=== PATIENT | male | born 1955 | race Caucasian/White ===

== ENCOUNTER → 2019-08-12 | Outpatient (CLI) | payer OTHER ==
[~2019-08-12] VITALS: Ht 170.2 cm; Wt 97.8 kg
[~2019-08-12] MED LIST: CARDURA4 MG PO; HYDROCHLOROTH12.5 M1 PO; LOPRESSOR50 PO; MOBIC15 MG PO; NABUMETONE 500500 M1 PO; PRAVACHOL20 MG PO; SINGULAIR 10 MG10 M1 PO; ZOLPIDEM TARTRA10 MG PO
[2019-08-12 08:21] VITALS: BP 153/81
--- NOTE | 2019-08-12 08:34 | NUR ---
Pain Clinic Assessment: 1. History of Osteoarthritis: SPINE History of Rheumatoid Arthritis: NO 2. Height: 5 ft. 7 in. 170.2 cm. Weight: 215.6 lb. oz. 97.796 kg. Patient's BMI: 33.8 3. Vital Signs: BP: 153/81 Pulse: 57 Resp: 16 Temp: 02 Sat: 96 ECG Mon: 4. Pain Intensity: 6 5. Fall Risk: Dizziness: Y Needs help standing or walking: N Fallen in the last 3 months: N Fall risk comments: 6. Patient on Blood Thinner: None 7. History of Hypertension: Y 8. Opioid Therapy greater than 6 weeks: N Opiate Contract Signed: 9. Risk Assessment Tool Provided: 10. Functional Assessment Tool: 11. Recreational Drug Use: Never Drug Type: Tobacco Use: Never Smoker Tobacco Type: Amount or Packs/day: How Many Years: Alcohol Use: Yes Frequency: Daily Quant:
--- NOTE | 2019-08-26 08:01 | HPC ---
[facility] [place] [address] PAIN MANAGEMENT CONSULTATION Name: KEMARLONG Mei [id number] Admission: 08/12/19 Attend Phys: Andrea Cooney DO Discharge: Date of : 53 Report #: [id number] THIS REPORT FOR: //name// CC: Doug Mckeon DATE OF SERVICE: 08/12/2019 REFERRING PHYSICIAN: Doug Negro DO CHIEF COMPLAINT: Right groin pain, right medial thigh pain. HISTORY OF PRESENT ILLNESS: As you know, the patient is a 64-year-old male who reports longstanding right groin pain and medial thigh pain that has been present since 2011. The patient states he "has just been putting up with it." Apparently, his symptoms became intolerable and he sought evaluation through his primary care team. The patient trialed conservative treatment options, but did not notice improvement in symptoms. The symptoms that he complains of worsened even with medication management, and then he was subsequently sent for MRI of the lumbar spine. Changes were noted at multiple levels that showed severe central canal stenosis, mainly at the L3-L4 level concerning for the patient's distribution of symptoms. He was subsequently referred to our clinic. The patient reports today pain is steady. He describes the pain as burning, aching, and tender. He denies injury or trauma that may have led to symptoms. He has no issues when he has pain lying down. He places pain score at 6/10, daily average is 6/10, worst pain has been is 9/10. He states that walking upstairs or uphill or on uneven surfaces exacerbate symptoms, nothing tends to improve pain. He has been referred to our service to discuss treatment options for suspected lumbar radiculopathy. PAST MEDICAL HISTORY: 1. Diverticulitis. 2. Irritable bowel syndrome. 3. Sleep apnea. 4. Chronic low back pain. 5. Hypertension. 6. Anxiety disorder. PAST SURGICAL HISTORY: 1. Rhinoplasty. 2. Colon surgery. SOCIAL HISTORY: The patient denies tobacco, IV or illicit drug use. Admits to 1 alcohol beverage per day. He is retired, retired about 6 years ago, not [facility] [address] [place] [address] PAIN MANAGEMENT CONSULTATION Name: LONG REINOSO Room #: REG [facility].#: [id number] Admission: 08/12/19 Attend Phys: Andrea Cooney DO Discharge: Date of : 53 Report #: [id number] receiving workmen's compensation nor is he trying to obtain disability benefits. He is accompanied by his significant other present in room. REVIEW OF SYSTEMS: Positive for headaches, cataracts, hearing loss with tinnitus, frequent urination, nocturia, kidney stones, testicular pain, lightheadedness and dizziness, insomnia, enlarged glands. All other review of systems negative per 12-point review of systems other than those listed in history of present illness. Pain impact score 36/70 indicating moderate interference of daily activities secondary to pain. ALLERGIES: PENICILLINS. CURRENT MEDICATIONS: Meloxicam 15 mg once a day, metoprolol 50 mg once a day, pravastatin 20 mg per day. Cardura 4 mg once a day, montelukast sodium 10 mg per day, hydrochlorothiazide 12.5 mg once a day, zolpidem 10 mg p.o. daily. IMAGING: MRI lumbar spine obtained 07/21/2019 shows degenerative changes throughout the lumbar spine, mild central canal stenosis at L2-L3, dutm-se-elptbiso central canal stenosis at L3-L4, moderate to severe right greater than left central canal stenosis at L4-L5, no neural foraminal stenosis seen. PQRS: The patient has osteoarthritic changes of the lumbar spine. No rheumatoid arthritis. He is placing pain intensity 6/10, is not a fall risk, has not had a fall in last 3 months. He is not on blood thinners. He is treated for hypertension. He is not on chronic opioids, has a low opioid addiction potential. Pain impact score is 36/70, moderate interference of daily activities secondary to pain. PHYSICAL EXAMINATION: VITAL SIGNS: Blood pressure 153/81, pulse is 57, respiratory rate 16 and unlabored. The patient is 96% on room air. Height 5 feet 7 inches tall, weight 215.6 pounds, BMI calculated 33.8. GENERAL: Well-developed, well-nourished, well-hydrated, 64-year-old male. He appears his stated age. He is in no acute distress, awake, alert and oriented x 3. Current pain score rated at 6/10. HEENT: Normocephalic, atraumatic. Pupils equal, round, reactive to light. Extraocular muscles intact. Sclerae nonicteric without injection. NEUROLOGIC: Cranial nerves 2-12 grossly intact. Speech fluent. The patient deemed a fair historian. LUNGS: Clear, no wheeze, rhonchi or rales. CARDIOVASCULAR: Regular. No appreciable gallop, no rub. ABDOMEN: Soft, nontender, nondistended. EXTREMITIES: Show no clubbing, no cyanosis, no edema. [facility] [address] [place] [address] PAIN MANAGEMENT CONSULTATION Name: LONG REINOSO Room #: REG CLTerence Perez#: [id number] Admission: 08/12/19 Attend Phys: Andrea Cooney DO Discharge: Date of : 53 Report #: [id number] MUSCULOSKELETAL: Lower extremity strength is symmetrical, 5/5. Muscle bulk and tone equal and symmetrical in comparing left lower extremity to right. Seated straight leg raising negative. Supine straight leg raising negative. Roland's test is negative. Modified Gaenslen's positive for some axial low back pain. Ankle clonus negative. Babinski is negative. ASSESSMENT: 1. Right groin pain. 2. Right scrotal pain. 3. Right anteromedial thigh pain. PLAN: 1. Based on today's physical exam and history the patient has provided the description that the patient uses to pain as well as location of symptoms, likely source of the patient's pain is neuropathic in origin. I am unable to correlate the patient's findings at present with a lumbar radiculopathy. Distribution of symptoms does not correlate with the findings of his MRI. He has inguinal pain, which would equate to an L1 dermatomal distribution as well as some anteromedial thigh pain over what appears to be the distribution of the obturator nerve, which again does not correlate with the patient's symptoms. Interestingly, he has majority of pain across the scrotum. He does not have any testicular symptoms, which would be related to thoracic dermatomal distributions, but does have scrotal pain, which would equate more to a sacral distribution. The distribution of pain does not appear to fit with typical lumbar radiculopathy. I believe further investigation is necessary. We would recommend imaging of the pelvic area with MRI. This will help us determine if there is a source of symptoms unknown at present and given the lack of a dermatomal distribution would be concerning of changes within the inguinal area. 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 Further investigation, I believe, is warranted. 2. The patient will be sent for MRI of the pelvic area without contrast. The patient will undergo this imaging as quickly as possible. This will help us to determine a more definitive course of treatment. 3. We will start the patient on an anti-inflammatory that he can take consistently. This will help with his ongoing pain. We will start the patient on nabumetone 500 mg dose 1 tab p.o. t.i.d. I have given the patient #90 tablets. He is to take this with meals. He will watch for dyspepsia, worsening of blood pressure, lower extremity edema. If he notes any side effects, discontinue immediately. 4. We will see the patient back in followup visit once he has completed his pelvic examination from MRI standpoint. This will help us determine a course of treatment, which may include injections of the genitofemoral branch or possibly even address pelvic issues with surgical consultation. This will all be based on the MRI of the pelvis that we are awaiting. 5. We wish to thank the referring nurse practitioner [place] [address] PAIN MANAGEMENT CONSULTATION Name: LONG REINOSO Room #: REG VALERIE Perez#: [id number] Admission: 08/12/19 Attend Phys: Andrea Cooney DO Discharge: Date of : 53 Report #: [id number] opportunity to see the patient in consultation. We will keep you apprised of his response to treatment. Again, we wish to thank you for the opportunity to see this patient in consultation. <ELECTRONICALLY SIGNED> By: Andrea Cooney DO 08/26/19 0801 [id number] Andrea Cooney DO /nt
== END ==
LOC: PAIN 08:06
DX: R10.30 Lower abdominal pain, unspecified (principal); I10 Essential (primary) hypertension; F41.9 Anxiety disorder, unspecified; M79.651 Pain in right thigh; N50.82 Scrotal pain; Z88.0 Allergy status to penicillin; Z79.899 Other long term (current) drug therapy

== ENCOUNTER → 2019-08-26 | Outpatient (CLI) | payer OTHER | LOC: MRI 08:59 | DX: N40.0 Benign prostatic hyperplasia without lower urinary tract symptoms (principal); K57.30 Diverticulosis of large intestine without perforation or abscess without bleeding; R10.13 Epigastric pain ==

== ENCOUNTER → 2019-09-23 | Outpatient (CLI) | payer OTHER ==
[~2019-09-23] VITALS: Ht 170.2 cm; Wt 98.0 kg
[2019-09-23 09:32] VITALS: BP 138/83
--- NOTE | 2019-09-23 09:39 | NUR ---
Pain Clinic Assessment: 1. History of Osteoarthritis: SPINE History of Rheumatoid Arthritis: NO 2. Height: 5 ft. 7 in. 170.2 cm. Weight: 216.0 lb. oz. 97.977 kg. Patient's BMI: 33.8 3. Vital Signs: BP: 138/83 Pulse: 63 Resp: 16 Temp: 02 Sat: 97 ECG Mon: 4. Pain Intensity: 5 5. Fall Risk: Dizziness: N Needs help standing or walking: N Fallen in the last 3 months: N Fall risk comments: 6. Patient on Blood Thinner: None 7. History of Hypertension: Y 8. Opioid Therapy greater than 6 weeks: N Opiate Contract Signed: 9. Risk Assessment Tool Provided: L0W-0 10. Functional Assessment Tool: 11. Recreational Drug Use: Never Drug Type: Tobacco Use: Never Smoker Tobacco Type: Amount or Packs/day: How Many Years: Alcohol Use: Yes Frequency: Quant:
--- NOTE | 2019-09-30 16:27 | HPC ---
[facility] [place] [address] PAIN MANAGEMENT CONSULTATION Name: LONG REINOSO Room #: REG Terence Perez#: [id number] Admission: 09/23/19 Attend Phys: Andrea Cooney DO Discharge: Date of : 53 Report #: [id number] THIS REPORT FOR: //name// CC: Doug Mckeon DATE OF SERVICE: 09/23/2019 CHIEF COMPLAINT: Right groin pain, right medial thigh pain. HISTORY OF PRESENT ILLNESS: As you know, the patient is a 64-year-old male with longstanding history of right groin pain, right medial thigh pain that began in 2010. He states he has just been "putting up with it. I saw the patient in consultation on 08/12/2019 and he was sent for further evaluation of the groin. He returns today to review the MRI, which essentially shows no findings other than some sigmoid diverticulosis, mild enlargement of the prostate typical for his age and some gluteus medius and minimus tendinosis, but otherwise no findings in the right groin. He returns reporting pain score of 5/10. States the pain is intermittent, aching and burning in sensation, exacerbated with walking uphill, stairs and crossing his legs. Rest appears to improve pain. He returns to discuss his findings of his MRI and discuss treatment options. ALLERGIES: PENICILLIN. CURRENT MEDICATIONS: Nabumetone 500 mg 3 times a day, metoprolol 50 mg once a day, pravastatin 20 mg once a day, Cardura 4 mg once a day, montelukast sodium 10 mg once a day, hydrochlorothiazide 12.5 mg once a day, zolpidem 10 mg p.o. at bedtime. SOCIAL HISTORY: The patient reports he is a nonsmoker. Denies IV or illicit drug use. He admits to occasional alcohol beverage. He is retired, retired years ago, accompanied by his significant other. IMAGING: MRI of the pelvis to evaluate right inguinal pelvic pain shows mild symmetrical bilateral hip joint osteoarthritic changes, otherwise unremarkable. There is sigmoid diverticulosis noted, but no definitive findings in that area. There is mild enlargement of the prostate, which is typical for the patient's age. He also has some mild tendinosis of the gluteus tendons on the right. PQRS: The patient has known arthritic changes of the lumbar spine, no rheumatoid arthritis. He is placing pain intensity today around 5/10. He is not a fall risk, has not had a fall in the last 3 months. He is not on blood thinners. He is treated for hypertension. He is not on chronic opioids and has a low opioid addiction potential. Pain impact score today is rated at 41/70, moderate to severe interference of daily activities secondary to pain. [facility] [address] [place] [address] PAIN MANAGEMENT CONSULTATION Name: LONG REINOSO Room #: REG VALERIE Perez#: [id number] Admission: 09/23/19 Attend Phys: Andrea Cooney DO Discharge: Date of : 53 Report #: [id number] PHYSICAL EXAMINATION: VITAL SIGNS: Blood pressure 138/83, pulse is 63, respiratory rate 16 and unlabored. The patient is 97% on room air. Height 5 feet 7 inches tall, weight 216 pounds, BMI calculated 33.8. GENERAL: Well-developed, well-nourished, well-hydrated 64-year-old male, appearing stated age. He is placing current pain score around 5/10. HEENT: Normocephalic, atraumatic. Pupils equal, round, reactive to light. EXTREMITIES: Show no clubbing, no cyanosis, and no edema. GENITOURINARY: There is no hydrocele noted on physical exam. No hernia noted with evaluation. MUSCULOSKELETAL: The patient has tenderness to palpation over the medial aspect of the groin. There are no masses or fluctuant fluid collections in the area. Lower extremity strength is equal and symmetrical, though there is slight giveaway strength noted with hip flexion, knee extension on the right due to pain generation in the groin. Seated straight leg raising negative. Supine straight leg raising negative. Roland's test is positive for some axial low back pain issues. Frogleg of the right causes intensification of right groin pain. ASSESSMENT: 1. Right groin pain. 2. Right scrotal pain. 3. Right anterior medial thigh pain. PLAN: 1. The patient returns today in followup visit where we reviewed in its entirety the recent MRI of his right pelvis. I am pleased to advise the patient there are no specific findings in the area concerning for any hernia. He has some mild, benign prostatic hypertrophy, typical for a 64-year-old male. He has some mild tendinosis of the gluteus muscles, but unrelated to the patient's right groin pain. There is a possibility he is experiencing some obturator nerve issue or even myofascial symptoms involving the adductors of the right lower extremity. We also discussed the minor findings in the lumbar spine may be contributing to his symptoms. Unfortunately, we have been unable to elucidate a reason for the patient's chronic longstanding right groin pain. Given the fact that there is no significant pathology, we have advised the patient the treatment options are limited. We discussed the following with the patient for treatment course. 2. We did discuss that if the patient wishes to trial an epidural injection, he could certainly do so. This might improve the patient's right groin pain, though the findings of the MRI show minimal changes at the levels consistent with the distribution of pain, though we would be more than willing to trial this injection if the patient wishes to do so. He does wish to move forward with authorization and once this has been obtained, he will return if possible to undergo the epidural injection to address the issues potentially from the nerves of the upper lumbar region. We also discussed with the patient that [address] [address] PAIN MANAGEMENT CONSULTATION Name: LONG REINOSO Room #: REG [facility] Margaret.#: [id number] Admission: 09/23/19 Attend Phys: Andrea Cooney DO Discharge: Date of : 53 Report #: [id number] physical therapy, stretching exercises may be beneficial. Further evaluation from Neurology might be also recommended. The patient will consider his options, but does wish to move forward with a possible trial of epidural injection. 3. The patient will be contacted once we have authorization for the patient to undergo a lumbar epidural injection if he wishes to do so. We will begin this authorization process and contact him once this has been completed. 4. We strongly recommend the patient to be evaluated further for obturator nerve issues and this would require neurological evaluation. There is a possibility the patient is experiencing obturator neuralgia which would correlate with the patient's distribution and we will defer to the Neurology team to evaluate that further. I am pleased to indicate that he does not have any type of pathology, specifically hernia in the area that needs surgical correction at this time. <ELECTRONICALLY SIGNED> By: Andrea Cooney DO 09/30/19 [id number] [id number] Andrea Cooney DO /nt
== END ==
LOC: PAIN 06:44
DX: R10.30 Lower abdominal pain, unspecified (principal); N50.82 Scrotal pain; M79.604 Pain in right leg